=== PATIENT | female | born 1990 | race Caucasian/White ===

== ENCOUNTER → 2017-09-27 11:22 | Outpatient (CLI) | payer OTHER, SELFPAY ==
[2017-09-27 12:31] LABS: Amphetamine/Metha Screen,Urine Negative ng/mL (<1000); Barbiturates Screen,Urine Negative ng/mL (<200); Benzodiazepines Screen,Urine Negative ng/mL (200); Cannabinoid Screen,Urine Negative ng/mL (<50); Cocaine Screen,Urine Negative ng/g (<300); Methadone Screen,Urine Negative ng/mL (<300); Opiate Screen,Urine Negative ng/mL (<300); Phencyclidine Screen,Urine Negative ng/mL (<25)
[2017-09-29 03:38] LABS: AFP Value 53.5 ng/mL (.); DIA Value 136.86 pg/mL (.); DSR (Second Trimester) 1 IN 7929 (.); Gest. Age on Collection Date 18.4 WEEKS (.); Insulin Dep Diabetes No (.); Maternal Age At EDD 26.3 yr (.); OSBR Risk 1 IN 4399 (.); Results Report (.); hCG MoM 1.82 (.); hCG Value 42340 mIU/mL (.); uE3 MoM 0.81 (.); uE3 Value 1.06 ng/mL (.)
[2017-09-29 06:20] LABS: HIV Screen 4th Generation wRfx Non Reactive (Non Reactive)
[2017-09-29 06:22] LABS: Gestat. Age Based On EDD (.)
== END ==
PROVIDERS: PCP Family Medicine; Visit Provider Obstetrics & Gynecology
DX: Z34.90 Encounter for supervision of normal pregnancy, unspecified, unspecified trimester (principal)
CPT/HCPCS: 36415; 80305; 82106; 84443; 86703; 86762; G0432

== ENCOUNTER 2017-10-02 11:26 | Outpatient (CLI) | payer OTHER, SELFPAY ==
[2017-10-02 12:05] VITALS: BP 105/55; PULSE 78; RESP 18; TEMP 36.6; O2SAT 98; BMI 30.9
[2017-10-02 14:06] LABS: Microscopic, Urine URINE MICROSCOPIC (MICROSCOPIC)
[2017-10-02 14:07] LABS: Appearance,Urine SL CLOUDY (Clear); Bilirubin,Urine Negative (Negative); Blood, Urine Negative (Negative); Color,Urine YELLOW (Yellow); Glucose,Urine (UA) Negative (Negative); Ketones,Urine 2+ (Negative); Leukocyte Esterase,Urine TRACE (Negative); Nitrate,Urine Negative (Negative); PH,Urine 6.5 (5.0-8.5); Protein,Urine Negative (Negative); Urobilinogen,Urine 0.2 EU/dl (0.2)
[2017-10-02 14:15] LABS: Bacteria,Urine 2+ /lpf; Mucus,Urine 4+ /lpf
== END 2017-10-02 14:59 | disposition home or self-care (01) ==
LOC: OBOUT 11:29 → OB 11:29
PROVIDERS: PCP Family Medicine; Referring Provider Obstetrics & Gynecology; Visit Provider Nurse Practitioner Obstetrics & Gynecology
DX: O60.02 Preterm labor without delivery, second trimester (principal); Z3A.19 19 weeks gestation of pregnancy
CPT/HCPCS: 59025; 81001; 87086; 96360; 96372

== ENCOUNTER 2017-11-01 11:40 | Outpatient (CLI) | payer OTHER, SELFPAY ==
--- NOTE | 2017-11-01 | US_ITS ---
US OB biophysical profile, US OB follow up, US SD Ratio umbilcal artery, US OB transvaginal: Indication: ITS.REASON: possible labor. ORDERING PHYSICIAN: Pan Marquez MD PATIENT AGE: 27 years FINDINGS: The following parameters are obtained: There is a single live fetus present in breech presentation. Average ultrasound age is 23 weeks 6 days. Estimated due date by ultrasound is 02/23/2016. Estimated weight is 674-grams. This is 6 percentile based on estimated due date BPD: 23 weeks 1 day OFD: 23 weeks 6 days HC: 23 weeks 0 days AC: 25 weeks FL: 23 weeks 6 days heart rate: 160 bpm. HC/AC: 1.02 Cephalic index: 74% FL/BPD: 75% FL/AC: 21% Amniotic fluid index: Not performed Qualitative AFV: 2 breathing movements: 0 Gross body movements: 2 Tone: 2 Biophysical profile score: 6 of 8 Doppler evaluation of the umbilical artery: SD ratio: 2.6 Resistive index: 0.61 No obvious anomalies evident. Placenta: Posterior grade 1. No previa or abruption Cervix: Appears closed and measures 3 cm. Endovaginal exam was performed for better visualization of the cervix which did appear closed IMPRESSION: Single live fetus in presentation with average ultrasound age of 23 weeks 6 days. Biophysical profile 6 of 8 with no breathing movement apparent. The cervix appears closed. Unremarkable Doppler evaluation of the umbilical artery. This exam does not suffice as a 20 week anatomy exam although no obvious anomalies are apparent
[2017-11-01 11:45] VITALS: BMI 30.1
[2017-11-01 11:52] VITALS: BP 121/61; PULSE 91; RESP 18; TEMP 36.8; O2SAT 100
[2017-11-01 11:59] VITALS: BP 121/61; PULSE 91; RESP 18; TEMP 36.8; O2SAT 100; BMI 30.1
== END 2017-11-01 14:15 | disposition home or self-care (01) ==
LOC: OBOUT 11:42 → OB 11:43
PROVIDERS: PCP Family Medicine; Visit Provider Obstetrics & Gynecology
DX: O26.92 Pregnancy related conditions, unspecified, second trimester (principal); Z3A.25 25 weeks gestation of pregnancy; R10.2 Pelvic and perineal pain
CPT/HCPCS: 59025; 76816; 76819; 76820; 76830; 96372

== ENCOUNTER 2017-11-02 13:03 | Outpatient (CLI) | payer OTHER, SELFPAY ==
[2017-11-02 13:11] VITALS: BP 115/56; PULSE 75; RESP 18; TEMP 36.7; O2SAT 99; BMI 30.9
== END 2017-11-02 13:34 | disposition home or self-care (01) ==
LOC: OBOUT 13:04 → OB 13:04
PROVIDERS: PCP Family Medicine; Visit Provider Obstetrics & Gynecology
DX: Z3A.25 25 weeks gestation of pregnancy (principal); O26.92 Pregnancy related conditions, unspecified, second trimester; R10.2 Pelvic and perineal pain
CPT/HCPCS: 96372

== ENCOUNTER 2017-12-14 11:25 | Outpatient (CLI) | payer OTHER, SELFPAY ==
[2017-12-14 11:29] VITALS: BMI 30.7
[2017-12-14 12:01] VITALS: BP 104/72; PULSE 84; RESP 18; TEMP 36.6; O2SAT 100; BMI 33.7
[2017-12-14 12:11] LABS: Microscopic, Urine URINE MICROSCOPIC (MICROSCOPIC)
[2017-12-14 12:13] LABS: Appearance,Urine SL CLOUDY (Clear); Bilirubin,Urine Negative (Negative); Blood, Urine Negative (Negative); Color,Urine YELLOW (Yellow); Glucose,Urine (UA) Negative (Negative); Ketones,Urine Negative (Negative); Leukocyte Esterase,Urine 1+ (Negative); Nitrate,Urine Negative (Negative); Protein,Urine Negative (Negative); Specific Gravity, Urine 1.015 (1.005-1.030); Urobilinogen,Urine 0.2 EU/dl (0.2)
[2017-12-14 12:34] LABS: Bacteria,Urine 1+ /lpf; Squamous Epithelial Cell,Urine 20-50 #/hpf (0-5)
== END 2017-12-14 12:20 | disposition home or self-care (01) ==
LOC: OBOUT 11:28 → OB 11:29
PROVIDERS: Obstetrics & Gynecology; PCP Family Medicine; Visit Provider Obstetrics & Gynecology
DX: O36.8130 Decreased fetal movements, third trimester, not applicable or unspecified (principal); Z3A.31 31 weeks gestation of pregnancy; M54.5 Low back pain
CPT/HCPCS: 59025; 81001; 87086

== ENCOUNTER → 2018-01-09 13:58 | Outpatient (REF) | payer OTHER, SELFPAY | LOC: LAB 13:58 | PROVIDERS: Visit Provider Obstetrics & Gynecology | DX: Z34.90 Encounter for supervision of normal pregnancy, unspecified, unspecified trimester (principal) | CPT/HCPCS: 86403 ==

== ENCOUNTER → 2018-01-30 14:34 | Outpatient (CLI) | payer OTHER, SELFPAY ==
[2018-01-30 14:39] LABS: Microscopic, Urine URINE MICROSCOPIC (MICROSCOPIC)
[2018-01-30 15:02] LABS: Appearance,Urine CLEAR (Clear); Bilirubin,Urine Negative (Negative); Blood, Urine 2+ (Negative); Color,Urine YELLOW (Yellow); Glucose,Urine (UA) Negative (Negative); Ketones,Urine Negative (Negative); Leukocyte Esterase,Urine 1+ (Negative); Nitrate,Urine Negative (Negative); PH,Urine 7.5 (5.0-8.5); Protein,Urine Negative (Negative); Urobilinogen,Urine 0.2 EU/dl (0.2)
[2018-01-30 15:06] LABS: Basophils # 0.1 K/mm3 (0-0.2); Basophils % 0.7 % (0.1-2.0); Eosinophils # 0.1 K/mm3 (0.0-0.4); Eosinophils % 1.7 % (0.1-12.0); Hematocrit 42.4 % (37.0-47.0); Hemoglobin 13.6 g/dL (12.2-16.2); Lymphocytes # 1.6 K/mm3 (0.7-4.5); Lymphocytes % 21.1 K/mm3 (10-50); Mean Corpuscular HGB Conc 32.2 g/dL (31.8-35.4); Mean Corpuscular Hemoglobin 28.3 pg (27.0-31.2); Mean Corpuscular Volume 88.1 fl (81-99); Mean Platelet Volume 6.7 fl (7.4-10.4); Monocytes # 0.3 K/mm3 (0.1-1.0); Monocytes % 3.2 % (1.7-9.3); Neutrophils # 5.6 K/mm3 (1.8-7.8); Neutrophils % 73.3 % (37.0-80.0); Platelet Count 396 K/mm3 (142-424); Red Blood Count 4.81 M/mm3 (4.20-5.40); Red Cell Distribution Width 12.7 % (11.5-17.5); White Blood Count 7.7 K/mm3 (4.8-10.8)
[2018-01-30 15:21] LABS: Amorphous Sediment,Urine 2+ /lpf; Bacteria,Urine 1+ /lpf; Squamous Epithelial Cell,Urine 20-50 #/hpf (0-5)
[2018-01-30 16:00] LABS: Alanine Aminotransferase 26 U/L (12-78); Albumin Level 3.4 gm/dL (3.4-5.0); Albumin/Globulin Ratio 0.9 (1.1-1.8); Alkaline Phosphatase 123 U/L (46-116); Anion Gap 11.8 mEq/L (5-15); Aspartate Amino Transferase 15 U/L (15-37); Bilirubin,Total 0.4 mg/dL (0.2-1.0); Blood Urea Nitrogen 6 mg/dL (7-18); Calcium 9.1 mg/dL (8.5-10.1); Carbon Dioxide 30 mmol/L (21.0-32.0); Chloride 108 mmol/L (98-107); Creatinine,Serum 0.83 mg/dL (0.55-1.02); Estimated Glomerular Filt Rate 83 ml/min (>60); GFR (African American) 101 ML/MIN (>60); Globulin 3.9 gm/dl (1.3-3.2); Glucose 94 mg/dL (74-106); HCG,Quantitative 14 mIU/mL; Potassium 4.8 mmoL/L (3.5-5.1); Sodium 145 mmol/L (136-145); Total Protein,Serum 7.3 gm/dL (6.4-8.2)
== END ==
PROVIDERS: PCP Family Medicine; Visit Provider Obstetrics & Gynecology
DX: Z01.818 Encounter for other preprocedural examination (principal); Z30.2 Encounter for sterilization
CPT/HCPCS: 36415; 80053; 81001; 84702; 85025; 87086

== ENCOUNTER 2020-07-25 09:00 | Emergency (ER) | payer OTHER, SELFPAY ==
[2020-07-25 09:10] VITALS: BP 109/59; PULSE 74; RESP 20; TEMP 36.1; O2SAT 100; BMI 32.4
--- NOTE | 2020-07-25 09:15 | HMH.EDUTC ---
[facility] Disposition Clinical Impression: Chest wall pain Disposition: Home, Self-Care Condition on Discharge: Good Instructions: DI for Atypical Chest Pain Prescriptions: Cyclobenzaprine HCl [Flexeril 10mg tablet] 10 mg PO Q8HP PRN 30 Days #90 tab PRN Reason: Muscle Spasm Transmission Status: Received by [id number] Lidocaine [Lidoderm 5% transdermal patch] 1 each TP Q24H PRN 30 Days #30 adh..patch PRN Reason: pain Transmission Status: Received by [id number] Naproxen Sodium [Naproxen ER 500mg Tab] 500 mg PO BID 15 Days #30 tab Transmission Status: Received by [id number] Referrals: Racheal Tanner [Primary Care Provider] - Time of Disposition: 09:49 Medical Decision Making - Yusuf Inquiry Pt receiving controlled substance: No Vital Signs: 07/25/20 09:10 Temperature 97.0 F L Temperature Source Oral Pulse Rate [Right Brachial] 74 Respiratory Rate 20 Blood Pressure [Right Arm] 109/59 L Blood Pressure Mean [Right Arm] 75 Blood Pressure Source [Right Arm] Automatic Cuff Blood Pressure Position [Right Arm] Sitting 02 Sat by Pulse Oximetry 100 Oxygen Delivery Method Room Air Orders (Tests/Meds): ORDERS Category Date Time Status CXR 2 view (NOT portable) [XR chest 2V] Stat Exams 07/25/20 09:23 Taken - Radiology Data #1 Image(s): Chest Image Reviewed: Yes I reviewed the patient's radiology image Preliminary Findings: Normal/NAD [facility] HPI - General Stated complaint: SOA, right arm soreness, no accident Time Seen by Provider: 07/25/20 09:15 - History of Present Illness Provider Complaint: Patient has had pain in her right anterior chest X 1 week. There was no inciting event or injury, but she feels as if she has pulled a muscle. It hurts to breathe. It hurts to move certain ways. It hurts to raise her right arm and she is right handed, so this is affecting her movements. She has had no fever, runny nose, cough, congestion, etc. Movement and breathing make it worse; nothing seems to make it much better. Onset (ago): week(s) (1) Location: chest Radiation: non-radiation Severity: moderate Severity scale (1-10): 5 Quality: burning, constant Consistency: constant Relieving factors: immobilization Exacerbating factors: movement Associated symptoms: denies other symptoms Treatments prior to arrival: NSAID, heat therapy - Related Data Previous Rx's Medication Instructions Recorded Cyclobenzaprine HCl [Flexeril 10mg 10 mg PO Q8HP PRN 30 Days #90 tab 07/25/20 tablet] Lidocaine [Lidoderm 5% transdermal 1 each TP Q24H PRN 30 Days #30 07/25/20 patch] adh..patch Naproxen Sodium [Naproxen ER 500mg 500 mg PO BID 15 Days #30 tab 07/25/20 Tab] Allergies Allergy/AdvReac Type Severity Reaction Status Date / Time No Known Allergies Allergy Verified 02/21/18 13:26 [facility] History - Hepatitis A Screen Attestation statement:: This patient has been screened for Hepatitis A risk factors. I have reviewed the patient's past medical history: Yes Medical History: Denies:: Cancer, Diabetes Mellitus Type 1, Diabetes Mellitus Type 2, MRSA, Seizures Other Medical History: Denies: Blood Transfusion Reaction Comment: ENDOMETRIOSIS Other Surgeries: Yes: No Previous Surgery. No: Amputation: No Fractures: No Comment: Dx. Lap, Bilateral tubal fulguration---02/06/2018 - Social History Smoking Status: Never smoker Alcohol Intake: never Alcohol Intake Frequency:: other Substance Use Type: denies use Occupational Status: employed Housing: house Household Members: children Family Hx:: No significant family history [employer] history: Non-contributory Comment: 3 's ROS Obtained: Yes All systems reviewed & no additional complaints - Cardiovascular Cardiovascular: Reports chest pain - Respiratory Respiratory: Reports pain on inspiration, Reports pain with breathing Physical Exam - General General appearance: alert, in no apparent distress
--- NOTE | 2020-07-25 09:23 | XR_ITS ---
PROCEDURE: XR CHEST 2V CLINICAL HISTORY: pain COMPARISON: No exams were available for comparison FINDINGS: The cardiomediastinal silhouette and pulmonary vascularity are within normal limits. The lungs are clear without infiltrates, suspicious nodules, or pleural effusions. No acute bony abnormalities. IMPRESSION: No acute findings. Dictated by: Levar Lira MD 07/25/2020 10:15 Levar Lira MD in OV 07/25/2020 10:15
[2020-07-25 09:48] VITALS: BP 109/59; PULSE 74; RESP 20; TEMP 36.1; O2SAT 100
== END 2020-07-25 09:50 | disposition home or self-care (01) ==
PROVIDERS: Emergency Provider Physician Assistant; PCP Family Medicine
DX: R07.89 Other chest pain (principal); R06.02 Shortness of breath
CPT/HCPCS: 71046; 99202; G0463

== ENCOUNTER 2022-04-26 11:01 | Emergency (ER) | payer OTHER, SELFPAY ==
[2022-04-26 14:00] VITALS: BP 131/81; PULSE 72; RESP 18; TEMP 36.9; O2SAT 99; BMI 34.8
--- NOTE | 2022-04-26 14:13 | EXP.UTC ---
Discharge Plan Disposition Patient Disposition: Home, Self-Care Condition: Good Prescriptions Prescriptions: New amoxicillin 500 mg capsule 500 mg PO TID 10 Days Qty: 30 0RF Referrals Follow up/Referrals: Racheal Tanner [Primary Care Provider] - See instructions Activity Restrictions/Add. Instructions Additional Instructions/Restrictions: *Monitor Temp, Over the counter Motrin or Tylenol as directed/as needed Tylenol every 4 hours and Motrin every 6 hours (as long as your family doctor has told you that you can take it) for fever or pain. and straight to ER if unable to lower temp less than 101.0 after medication given *Warm salt water gargles may help to soothe the throat *Throat Lozenges? *Warm fluids like tea with honey may help to soothe the throat? *Sleep elevated *Humidifier/Vaporizer Your throat swab was sent for culture. Those results are typically sent to your primary care. Be sure to follow up in 2-3 days with your family doctor/primary care physician if no improvement so they can review those result and treat if necessary. If you don?t have a primary care doctor, I recommend you get one but in the mean time, you will have to return to a walk in clinic Follow up IMMEDIATELY for new or worsening symptoms or no Noticeable improvement over the next 48-72 hours. 911 for difficulty breathing or swallowing You were tested for today for Upper Respiratory Panel with COVID19 your test result should be back in the next 24-48 hours, you may checked your results on the [facility] Clinical Impressions Clinical Impression: Otitis media Stand Alone Forms Stand Alone Forms: Work/School Release Instructions Patient Instructions: Middle Ear Infection Discharge ED Provider: Aruna Trejo [facility] [place] HPI General Stated complaint: Double ear pain, sore throat, bodyache, covid test Mode of Arrival: Ambulatory Source of Information: Patient Limitations: No Limitations Time Seen by Provider: 04/26/22 14:13 Description of Symptoms (Recalled from Triage Doc. by RN): PATIENT C/O SORE THROAT, EAR ACHE, HEADACHE, AND BODY ACHES SINCE LAST NIGHT HEENT Symptoms (Recalled from RN notes): Yes Resp Symptoms (Recalled from RN notes): No Skin Symptoms (Recalled from RN notes): No MS Symptoms (Recalled from RN notes): Yes Functional Status (Recalled from RN notes): WNL History of Present Illness Provider Complaint: Patient states that she started feeling achy over the weekend and having bilateral ear pain worse in left States that it has continued to get worse States that she started last night with sore throat, chills and had a fever States that she feels like she did when she had COVID Related Data Previous Rx's Medication Instructions Recorded amoxicillin 500 mg capsule 500 mg PO TID 10 days #30 caps 04/26/22 Allergies Allergy/AdvReac Type Severity Reaction Status Date / Time No Known Allergies Allergy Verified 02/21/18 13:26 Worker's Comp Is this a Worker's Comp case?: No [facility] Disclaimer: The information contained in this section may have been updated after the patient was seen, as this information can be updated by other users. Medical History (Updated 04/26/22 @ 14:31 by Aruna Trejo APRN) Anxiety Depression Surgical History (Updated 04/26/22 @ 14:12 by Tiffani Ramos RN) History of tubal ligation Social History (Updated 04/26/22 @ 14:12 by Tiffani Ramos RN) Smoking Status: Never smoker alcohol intake: never substance use type: denies use current occupational status: other Travel in the last 8 weeks: None household members: children housing: house current occupation: [employer] current occupational exposures/hazards: No ROS Obtained: Yes All systems reviewed & no additional complaints except as documented and Yes Systems reviewed as appropriate & no additional complaints except as documented Constitutional Constitution
[2022-04-26 14:31] LABS: UTC Strep Screen (Rapid) Negative (Negative)
[2022-04-26 14:31] LABS: UTC Influenza A Antigen Negative (Negative); UTC Influenza B Antigen Negative (Negative)
[2022-04-26 14:32] VITALS: BP 131/81; PULSE 72; RESP 18; TEMP 36.9; O2SAT 99
== END 2022-04-26 14:37 | disposition home or self-care (01) ==
PROVIDERS: Emergency Provider Nurse Practitioner; PCP Family Medicine
DX: U07.1 COVID-19 (principal); H66.90 Otitis media, unspecified, unspecified ear
CPT/HCPCS: 87804; 87880; 99212; C9803; G0463; U0003; U0005

== ENCOUNTER 2023-09-30 16:36 | Emergency (ER) | payer OTHER, SELFPAY ==
[2023-09-30 16:59] VITALS: BP 126/80; PULSE 75; RESP 18; TEMP 37.3; O2SAT 96; BMI 38.1
--- NOTE | 2023-09-30 17:13 | EXP.UTC ---
Discharge Plan Disposition Patient Disposition: Home, Self-Care Condition: Good Prescriptions Prescriptions: New benzonatate 100 mg capsule 100 mg PO TIDP PRN (Reason: Cough) Qty: 30 0RF ondansetron 4 mg Tablet,Disintegrating 4 mg PO Q8H PRN (Reason: Nausea) Qty: 12 0RF No Action amoxicillin 500 mg capsule 500 mg PO TID 10 Days Qty: 30 0RF Referrals Follow up/Referrals: Racheal Tanner [Primary Care Provider] - See instructions Activity Restrictions/Add. Instructions Additional Instructions/Restrictions: Drink plenty of fluids. Take tylenol or ibuprofen for pain or fever. Take the medications as directed. Follow up with your regular doctor. GO TO THE ER FOR ANY WORSENING SYMPTOMS Clinical Impressions Clinical Impression: Acute viral syndrome, Exposure to 2019 novel coronavirus Stand Alone Forms Stand Alone Forms: Work/School Release Instructions Patient Instructions: Coronavirus Disease 2019, Preventing the Spread of Coronavirus Discharge Instructions Discharge ED Provider: Bertin Whitlock [facility] General Stated complaint: Achy,fever,exposed to covid Mode of Arrival: Ambulatory Source of Information: Patient Limitations: No Limitations Time Seen by Provider: 09/30/23 17:13 HEENT Symptoms (Recalled from RN notes): No Resp Symptoms (Recalled from RN notes): No Skin Symptoms (Recalled from RN notes): No MS Symptoms (Recalled from RN notes): No Functional Status (Recalled from RN notes): na History of Present Illness Provider Complaint: She states that for the past 3 days she has had cough, congestion, and sore throat. She has had fever/chills/and malaise. Related Data Previous Rx's Medication Instructions Recorded amoxicillin 500 mg capsule 500 mg PO TID 10 days #30 caps 04/26/22 benzonatate 100 mg capsule 100 mg PO TIDP PRN Cough #30 caps 09/30/23 ondansetron 4 mg disintegrating 4 mg PO Q8H PRN Nausea #12 tabs 09/30/23 tablet Allergies Allergy/AdvReac Type Severity Reaction Status Date / Time No Known Allergies Allergy Verified 02/21/18 13:26 Worker's Comp Is this a Worker's Comp case?: No Is this an [facility] Worker's Comp?: No Is this a [facility] Worker's Comp?: No [facility] Disclaimer: The information contained in this section may have been updated after the patient was seen, as this information can be updated by other users. Medical History (Updated 09/30/23 @ 17:35 by Bertin Whitlock APRN) Depression Anxiety Surgical History (Updated 04/26/22 @ 14:12 by Tiffani Ramos RN) History of tubal ligation Social History (Updated 04/26/22 @ 14:12 by Tiffani Ramos RN) Smoking Status: Never smoker alcohol intake: never substance use type: denies use current occupational status: other Travel in the last 8 weeks: None household members: children housing: house current occupation: [employer] current occupational exposures/hazards: No ROS Obtained: Yes All systems reviewed & no additional complaints except as documented Constitutional Constitutional: Reports chills and Reports fever(s) Eyes Eyes: Denies eye discharge ENT Ears, Nose, Mouth, and Throat: Reports as per HPI Cardiovascular Cardiovascular: Denies chest pain Respiratory Respiratory: Denies chest congestion and Reports cough Gastrointestinal Gastrointestingal: Reports nausea; Denies abdominal pain, constipation, cramping, diarrhea or vomiting Musculoskeletal Musculoskeletal: Denies arthralgias Integumentary/Breasts Skin/Breast: Denies rash Neurologic Neurologic: Denies paresthesias Physical Exam General General appearance: alert and in no apparent distress Eye Eye exam: Present normal appearance, PERRL and EOMI ENT ENT exam: Present mucous membranes moist and normal external ear exam Expanded ENT Exam External ear exam: Present normal external inspection TM/Canal exam: Bilateral TM: erythema and bulging Nose exam: Absent sinus tenderness Nasal speculum exam: Bilateral: normal Mouth exam: Present normal external inspection; Absent drooling Teeth exam: Present normal inspection Throat exam: Present tonsillar erythema and tonsillomegaly Neck Neck exam: Present normal inspection, full ROM and trachea midline; Absent tenderness, lymphadenopathy or thyromegaly Chest Chest inspection: Present normal inspection and symmetric chest wall rise; Absent tenderness or rash Respiratory Respiratory exam: Present normal lung sounds bilaterally; Absent respiratory distress, wheezes, stridor or accessory muscle use Cardiovascular Cardiovascular exam: Present regular rate, normal rhythm and normal heart sounds Abdominal Exam Abdominal exam: Present soft; Absent distention, tenderness, guarding, rebound or rigidity Extremities Exam Extremities exam: Present normal inspection, full ROM and normal capillary refill; Absent tenderness or calf tenderness Back Exam Back exam: Present normal inspection and full ROM; Absent tenderness Neurological Exam Neurological exam: Present alert and oriented X3 Psychiatric Psychiatric exam: Present normal affect and normal mood Skin Skin exam: Present warm, dry, intact and normal color Lymphatic Lymphatic Findings: no adenopathy Medical Decision Making Medical Records Medical records reviewed: No I reviewed the patient's medical records. Yusuf Inquiry Pt receiving controlled substance: No Vital Signs: 09/30/23 16:59 Temperature 99.2 F Temperature Source Oral Pulse Rate [Left] 75 Respiratory Rate 18 Blood Pressure [Left Arm] 126/80 Blood Pressure Mean [Left Arm] 95 Blood Pressure Source [Left Arm] Automatic Cuff 02 Sat by Pulse Oximetry 96
[2023-09-30 17:40] VITALS: BP 126/80; PULSE 75; RESP 18; TEMP 37.3; O2SAT 96
[2023-09-30 17:41] LABS: Coronavirus 19, PCR Not Detected (NotDetected); Influenza A, PCR Not Detected (NotDetected); Influenza B, PCR Not Detected (NotDetected)
--- NOTE | 2023-09-30 18:18 | PC.NURSE ---
Attempted to call pt about test results was hung up on
== END 2023-09-30 17:43 | disposition home or self-care (01) ==
PROVIDERS: Emergency Provider Nurse Practitioner Family; PCP Family Medicine
DX: R05.9 Cough, unspecified (principal); R50.9 Fever, unspecified; R09.81 Nasal congestion; R07.0 Pain in throat; Z20.822 Contact with and (suspected) exposure to COVID-19
CPT/HCPCS: 87636; 99212; 99214; G0463

== ENCOUNTER 2024-03-06 17:19 | Emergency (ER) | payer OTHER, SELFPAY ==
[2024-03-06 17:50] VITALS: BP 106/58; PULSE 69; RESP 20; TEMP 36.9; O2SAT 97; BMI 30.7
--- NOTE | 2024-03-06 17:51 | ED_ITS ---
Discharge Plan Disposition Patient Disposition: Home, Self-Care Condition: Good Prescriptions Prescriptions: New azithromycin [Zithromax] 250 mg tablet 250 mg PO UD DOSE PK Qty: 6 0RF Rx Instructions: Take two (2) tablets today, then one (1) tablet days #2 thru #5 methylprednisolone 4 mg Tablets,Dose Pack 4 mg PO DIRECTED 6 Days Qty: 21 0RF Rx Instructions: Take 1 pack as directed for 6 days udxubhyytkhphzw-[id number] [Bromfed DM] 2-30-10 mg/5 mL Syrup 5 ml PO Q6H PRN (Reason: Cough) Qty: 240 0RF Referrals Follow up/Referrals: Racheal Tanner [Primary Care Provider] - See instructions Activity Restrictions/Add. Instructions Additional Instructions/Restrictions: Drink plenty of fluids. Take tylenol or ibuprofen for pain or fever. Take the medications as directed. Follow up with your regular doctor. GO TO THE ER FOR ANY WORSENING SYMPTOMS Clinical Impressions Clinical Impression: Sinusitis, Bronchitis Stand Alone Forms Stand Alone Forms: Work/School Release Instructions Patient Instructions: DI for Sinusitis, DI for Acute Bronchitis Print Language Print Language: Nepalese Discharge ED Provider: Bertin Whitlock [facility] General Stated complaint: MART,body aches Time Seen by Provider: 03/06/24 17:51 Related Data Previous Rx's ?Medication ?Instructions ?Recorded azithromycin 250 mg tablet 250 mg PO UD DOSE PK #6 tabs 03/06/24 (Zithromax) vnoxwyimmiksako-hjbahndsewpotus-PP 5 ml PO Q6H PRN Cough #240 mL 03/06/24 2 mg-30 mg-10 mg/5 mL oral syrup (Bromfed DM) methylprednisolone 4 mg tablets in 4 mg PO DIRECTED 6 days #21 tabs 03/06/24 a dose pack Allergies Allergy/AdvReac Type Severity Reaction Status Date / Time No Known Allergies Allergy Verified 02/21/18 13:26 [facility] Disclaimer: The information contained in this section may have been updated after the patient was seen, as this information can be updated by other users. Medical History (Updated 03/06/24 @ 18:38 by Bertin Whitlock APRN) Depression Anxiety Surgical History (Updated 04/26/22 @ 14:12 by Tiffani Ramos RN) History of tubal ligation Social History (Updated 04/26/22 @ 14:12 by Tiffani Ramos RN) Smoking Status: Never smoker alcohol intake: never substance use type: denies use current occupational status: other Travel in the last 8 weeks: None household members: children housing: house current occupation: [employer] current occupational exposures/hazards: No ROS Obtained: Yes All systems reviewed & no additional complaints except as documented Constitutional Constitutional: Reports poor appetite Eyes Eyes: Reports system reviewed and no additional complaints, except as documented ENT Ears, Nose, Mouth, and Throat: Reports as per HPI Cardiovascular Cardiovascular: Reports system reviewed and no additional complaints, except as documented and Denies chest pain Respiratory Respiratory: Denies shortness of breath, Denies chest congestion, Reports cough, Denies stridor and Denies wheezing Gastrointestinal Gastrointestingal: Reports system reviewed and no additional complaints, except as documented; Denies abdominal pain, diarrhea or vomiting Musculoskeletal Musculoskeletal: Reports system reviewed and no additional complaints, except as documented and Denies arthralgias Integumentary/Breasts Skin/Breast: Reports system reviewed and no additional complaints, except as documented and Denies rash Neurologic Neurologic: Denies paresthesias Allergic/Immunologic Allergic/Immunologic: Denies wheezing Physical Exam General General appearance: alert and in no apparent distress Eye Eye exam: Present normal appearance, PERRL and EOMI ENT ENT exam: Present mucous membranes moist and normal external ear exam Expanded ENT Exam External ear exam: Present normal external inspection TM/Canal exam: Bilateral TM: erythema and bulging Nose exam: Absent sinus tenderness Nasal speculum exam: Bilateral: normal Mouth exam: Present normal external inspection; Absent drooling Teeth exam: Present normal inspection Throat exam: Present tonsillar erythema and tonsillomegaly Neck Neck exam: Present normal inspection, full ROM and trachea midline; Absent tenderness, lymphadenopathy or thyromegaly Chest Chest inspection: Present normal inspection and symmetric chest wall rise; Absent tenderness or rash Respiratory Respiratory exam: Present normal lung sounds bilaterally; Absent respiratory distress, wheezes, stridor or accessory muscle use Cardiovascular Cardiovascular exam: Present regular rate, normal rhythm and normal heart sounds Abdominal Exam Abdominal exam: Present soft; Absent distention, tenderness, guarding, rebound or rigidity Extremities Exam Extremities exam: Present normal inspection, full ROM and normal capillary refill; Absent tenderness or calf tenderness Back Exam Back exam: Present normal inspection and full ROM; Absent tenderness Neurological Exam Neurological exam: Present alert and oriented X3 Psychiatric Psychiatric exam: Present normal affect and normal mood Skin Skin exam: Present warm, dry, intact and normal color Lymphatic Lymphatic Findings: no adenopathy Medical Decision Making Medical Records Medical records reviewed: No I reviewed the patient's medical records. Screening: Per USPSTF and CDC recommendations, given the prevalence of disease in our region, it is our hospital?s policy to screen for HIV and viral Hepatitis for all patients aged 18 and over and those with ongoing risk factors. Yusuf Inquiry Pt receiving controlled substance: No Lab Data Lab results reviewed: Yes I reviewed the patient's lab results.
[2024-03-06 18:50] VITALS: BP 106/58; PULSE 69; RESP 20; TEMP 36.9; O2SAT 97
== END 2024-03-06 18:53 | disposition home or self-care (01) ==
PROVIDERS: Emergency Provider Nurse Practitioner Family; PCP Family Medicine
DX: J01.90 Acute sinusitis, unspecified (principal); J40 Bronchitis, not specified as acute or chronic
CPT/HCPCS: 87635; 99213; G0381